=== PATIENT | female | born 1945 | race Caucasian/White ===

== ENCOUNTER 2016-10-20 11:33 | Emergency (ER) | payer MEDICARE ==
[2016-10-20] MEDS ORDERED: ACETAMINOPHEN 325 MG TABLET ONE (13:08)
[2016-10-20] MEDS ORDERED: IBUPROFEN 600 MG TABLET ONE (13:08)
== END 2016-10-20 14:21 | disposition home or self-care (01) ==
LOC: ED 11:33
DX: M79.604 Pain in right leg (principal); I10 Essential (primary) hypertension; E11.9 Type 2 diabetes mellitus without complications; Z79.84 Long term (current) use of oral hypoglycemic drugs
CPT/HCPCS: 85379; 36415; 99283 ×2; A9270 ×2